=== PATIENT | female | born 1995 | race Two or more races ===

== ENCOUNTER 2017-05-05 12:57 | Outpatient (CLI) | payer BC ==
[2017-05-05 14:04] LABS: BASOPHILS % (AUTO) 0.5 % (0.0-2.0); EOSINOPHILS # (AUTO) 0.1 /CMM (0.0-0.7); EOSINOPHILS % (AUTO) 0.6 % (0.0-6.0); HEMATOCRIT 37 % (33-45); LYMPHOCYTES # (AUTO) 2.6 /CMM (0.8-4.8); LYMPHOCYTES % (AUTO) 30.4 % (20.0-44.0); MEAN CORPUSCULAR HEMOGLOBIN 26 PG (26.0-33.0); MEAN CORPUSCULAR HGB CONC 32 g/dl (31.0-36.0); MEAN CORPUSCULAR VOLUME 81 fL (82-100); MONOCYTES # (AUTO) 0.3 /CMM (0.1-1.30); MONOCYTES % (AUTO) 3.9 % (2.0-12.0); NEUTROPHILS # (AUTO) 5.5 /CMM (1.8-8.9); NEUTROPHILS % (AUTO) 64.6 % (43.0-81.0); PLATELET COUNT (AUTO) 272 /CMM (150-450); RDW COEFFICIENT OF VARIATION 15.9 (11.5-15.0); WHITE BLOOD COUNT (AUTO) 8.5 K/uL (4.3-11.0)
[2017-05-05 14:21] LABS: ALBUMIN 3.8 g/dL (3.4-5.0); BILIRUBIN,TOTAL 0.3 mg/dL (0.2-1.0); CALCIUM, SERUM 9.5 mg/dL (8.5-10.1); CREATININE 0.6 mg/dL (0.6-1.3); POTASSIUM 3.6 mmol/L (3.5-5.1); TOTAL PROTEIN, SERUM 7.8 g/dL (6.4-8.2)
[2017-05-05 14:54] LABS: FREE T4 (FREE THYROXINE) 1.03 ng/dL (0.76-1.46); THYROID STIMULATING HORMONE 1.209 uIU/mL (0.358-3.74)
== END 2017-05-05 23:59 | disposition home or self-care (01) ==
LOC: LAB 12:57
PROVIDERS: ATTEND Family Medicine
DX: R00.2 Palpitations (principal); R79.89 Other specified abnormal findings of blood chemistry
CPT/HCPCS: 36415; 80053-TC; 80061-TC; 84439-TC; 84443-TC; 85025-TC; 86900-TC

== ENCOUNTER 2017-08-10 11:23 | Outpatient (CLI) | payer BC | END 2017-08-10 23:59 | disposition home or self-care (01) | LOC: LAB 11:23 | PROVIDERS: ATTEND Family Medicine | DX: R89.1 Abnormal level of hormones in specimens from other organs, systems and tissues (principal) | CPT/HCPCS: 36415; 84146 ==

== ENCOUNTER 2017-09-07 11:55 | Outpatient (CLI) | payer BC ==
[2017-09-07] MEDS ORDERED: GADOVERSETAMIDE 5 MMOL/10 ML VIAL ONE (13:52)
[2017-09-07] MEDS ORDERED: GADOVERSETAMIDE 2.5 MMOL/5 ML VIAL ONE (13:52)
== END 2017-09-07 23:59 | disposition home or self-care (01) ==
LOC: MRI 11:55
PROVIDERS: ATTEND Family Medicine
DX: R89.1 Abnormal level of hormones in specimens from other organs, systems and tissues (principal)
CPT/HCPCS: 70542-TC; A9579

== ENCOUNTER 2018-03-24 11:44 | Outpatient (CLI) | payer BC ==
[2018-03-24 13:33] LABS: BASOPHILS % (AUTO) 0.7 % (0.0-2.0); EOSINOPHILS % (AUTO) 0.9 % (0.0-6.0); HEMATOCRIT 35 % (33-45); HEMOGLOBIN 10.9 g/dL (11.5-14.8); LYMPHOCYTES # (AUTO) 2.6 /CMM (0.8-4.8); LYMPHOCYTES % (AUTO) 42.1 % (20.0-44.0); MEAN CORPUSCULAR HEMOGLOBIN 25 PG (26.0-33.0); MEAN CORPUSCULAR HGB CONC 31 g/dl (31.0-36.0); MEAN CORPUSCULAR VOLUME 81 fL (82-100); MONOCYTES # (AUTO) 0.4 /CMM (0.1-1.30); MONOCYTES % (AUTO) 5.8 % (2.0-12.0); NEUTROPHILS # (AUTO) 3.1 /CMM (1.8-8.9); NEUTROPHILS % (AUTO) 50.5 % (43.0-81.0); PLATELET COUNT (AUTO) 289 /CMM (150-450); RDW COEFFICIENT OF VARIATION 16.9 (11.5-15.0); RED BLOOD CELL COUNT(AUTO) 4.27 MIL/uL (4.0-5.2); WHITE BLOOD COUNT (AUTO) 6.2 K/uL (4.3-11.0)
[2018-03-24 13:47] LABS: ALBUMIN 3.7 g/dL (3.4-5.0); BILIRUBIN,TOTAL 0.3 mg/dL (0.2-1.0); CALCIUM, SERUM 8.5 mg/dL (8.5-10.1); CREATININE 0.6 mg/dL (0.6-1.3); TOTAL PROTEIN, SERUM 7.4 g/dL (6.4-8.2)
[2018-03-24 13:55] LABS: FREE T4 (FREE THYROXINE) 1.08 ng/dL (0.76-1.46); THYROID STIMULATING HORMONE 0.779 uIU/mL (0.358-3.74)
[2018-03-25 08:08] LABS: FOLLICLE STIMULATION HORMONE 2.5 mIU/mL (.); PROLACTIN 39.3 ng/mL (4.8-23.3)
== END 2018-03-24 23:59 | disposition home or self-care (01) ==
LOC: LAB 11:44
PROVIDERS: ATTEND Family Medicine
DX: R89.1 Abnormal level of hormones in specimens from other organs, systems and tissues (principal); E55.9 Vitamin D deficiency, unspecified
CPT/HCPCS: 36415; 80053-TC; 82306; 83001; 83002; 84146; 84439-TC; 84443-TC; 85025-TC

== ENCOUNTER 2022-04-02 10:30 | Outpatient (CLI) | payer BC | END 2022-04-02 23:59 | disposition home or self-care (01) | LOC: RAD 10:30 | PROVIDERS: ATTEND Family Medicine | DX: M25.561 Pain in right knee (principal); R07.9 Chest pain, unspecified; Z00.01 Encounter for general adult medical examination with abnormal findings | CPT/HCPCS: 71046; 73562 ==

== ENCOUNTER 2022-05-06 08:08 | Outpatient (CLI) | payer BC | END 2022-05-06 23:59 | disposition home or self-care (01) | LOC: US 08:08 | PROVIDERS: ATTEND Family Medicine | DX: K59.00 Constipation, unspecified (principal); R07.9 Chest pain, unspecified | CPT/HCPCS: 76700-TC; 93307-TC ==

== ENCOUNTER → 2023-04-07 | Outpatient (CLI) | payer BC | END | disposition home or self-care (01) | LOC: RAD 13:06 | PROVIDERS: ATTEND Family Medicine | DX: Z01.818 Encounter for other preprocedural examination (principal) | CPT/HCPCS: 71046 ==

== ENCOUNTER 2023-04-21 06:03 | Inpatient (IN) | payer BC ==
[~2023-04-21] VITALS: Ht 157.5 cm; Wt 72.6 kg
[2023-04-21] MEDS ORDERED: FENTANYL PF 250MCG/5ML AMPUL ONE (06:50)
[2023-04-21] MEDS ORDERED: HYDROMORPHONE INJ 2 MG/ML DISP.SYRIN ONE (06:50)
[2023-04-21] MEDS ORDERED: FAMOTIDINE/PF INJ 20 MG/2 ML VIAL IV ONE (06:51)
[2023-04-21] MEDS ORDERED: ROCURONIUM BROMIDE 50 MG/5 ML ONE (06:51)
[2023-04-21] MEDS ORDERED: MIDAZOLAM HCL 2 MG/2ML VIAL ONE (06:51)
[2023-04-21 06:54] LABS: PREGNANCY TEST URINE QUAL NEGATIVE (NEGATIVE)
[2023-04-21] MEDS ORDERED: LIDOCAINE HCL/MPF 1% 30 ML VIAL IJ ONE (06:58)
[2023-04-21] MEDS ORDERED: BUPIVACAINE 0.5 % PF 150 MG/30 ML VIAL ONE (06:59)
[2023-04-21] MEDS ORDERED: LIDOCAINE 1%-EPI 1:100,000 20 ML VIAL ONE (07:35)
[2023-04-21] MEDS ORDERED: MORPHINE SULFATE INJ 4 MG/ML DISP.SYRIN ONE (12:09)
[2023-04-21 12:30] VITALS: BP 124/80; TEMP 98.8; O2SAT 100
[2023-04-21] MEDS ORDERED: PROP10TA10 PO (12:32)
[2023-04-21] MEDS ORDERED: IV D5/0.45 NACL 1,000 ML IV PRN (13:00)
[2023-04-21] MEDS ORDERED: MAGNESIUM HYDROXIDE 30 ML UDC PO PRN (13:30)
[2023-04-21] MEDS ORDERED: PROPRANOLOL HCL 10 MG TABLET PO PRN (13:30)
[2023-04-21] MEDS ORDERED: HYDROCODONE/APAP 10/325MG TABLET PO PRN (13:30)
[2023-04-21] MEDS ORDERED: ACETAMINOPHEN 325 MG TABLET PO PRN (13:30)
[2023-04-21] MEDS ORDERED: Z GUARD REMEDY 4 OZ OINT TP PRN (13:30)
[2023-04-21] MEDS ORDERED: ONDANSETRON HCL/PF 4 MG/2 ML VIAL IVP PRN (13:30)
[2023-04-21] MEDS ORDERED: MAG HYDROX/AL HYDROX/SIMETH 30 ML UDC PO PRN (13:30)
[2023-04-21] MEDS ORDERED: ZOLPIDEM TARTRATE 5 MG TABLET PO PRN (13:30)
[2023-04-21] MEDS: HYDROMORPHONE 1 MG/1 ML DISP.SYRIN IV PRN ×2 (14:22→21:33)
[2023-04-21 16:00] VITALS: BP 115/66; TEMP 99; O2SAT 98
[2023-04-21] MEDS: IV NS 0.9% 1,000 ML IV PRN (16:05)
[2023-04-21] MEDS: MORPHINE SULFATE INJ 2 MG/ML DISP.SYRIN IV PRN (17:33)
[2023-04-21] MEDS: oxyCODONE/APAP (5/325 MG) 1 UDTAB TABLET PO PRN (19:38)
[2023-04-21 20:00] VITALS: BP 112/57; TEMP 97.9; O2SAT 98
[2023-04-22] MEDS: MORPHINE SULFATE INJ 2 MG/ML DISP.SYRIN IV PRN ×2 (01:57→08:11)
[2023-04-22] MEDS: IV NS 0.9% 1,000 ML IV PRN (04:43)
[2023-04-22] MEDS: oxyCODONE/APAP (5/325 MG) 1 UDTAB TABLET PO PRN (05:09)
[2023-04-22 07:00] VITALS: BP 112/51; TEMP 97.9; O2SAT 100
[2023-04-22 08:17] LABS: BASOPHILS % (AUTO) 0.2 % (0.0-2.0); EOSINOPHILS % (AUTO) 0.2 % (0.0-6.0); HEMATOCRIT 31 % (33-45); HEMOGLOBIN 10.1 g/dL (11.5-14.8); LYMPHOCYTES % (AUTO) 32.2 % (20.0-44.0); MEAN CORPUSCULAR HEMOGLOBIN 28 PG (26.0-33.0); MEAN CORPUSCULAR HGB CONC 33 g/dl (31.0-36.0); MEAN CORPUSCULAR VOLUME 84 fL (82-100); MONOCYTES # (AUTO) 0.8 K/uL (0.1-1.30); MONOCYTES % (AUTO) 8.5 % (2.0-12.0); NEUTROPHILS # (AUTO) 5.5 K/uL (1.8-8.9); NEUTROPHILS % (AUTO) 58.9 % (43.0-81.0); PLATELET COUNT (AUTO) 220 K/uL (150-450); RED BLOOD CELL COUNT(AUTO) 3.67 MIL/uL (4.0-5.2); RED CELL DISTRIBUTION WIDTH 15.6 % (11.5-15.0); WHITE BLOOD COUNT (AUTO) 9.3 K/uL (4.3-11.0)
[2023-04-22 08:26] LABS: CALCIUM, SERUM 7.9 mg/dL (8.5-10.1); CREATININE 0.5 mg/dL (0.6-1.3); MAGNESIUM 2.1 mg/dL (1.8-2.4); PHOSPHORUS 3.2 mg/dL (2.5-4.9); POTASSIUM 3.5 mmol/L (3.5-5.1)
[2023-04-22] MEDS ORDERED: HYDR-3980 PO (09:46)
[2023-04-22] MEDS ORDERED: IBUP-1957 PO (09:46)
[2023-04-22] MEDS ORDERED: ACET325T53 PO (09:46)
[2023-04-22] MEDS ORDERED: DOCU-141 PO (09:46)
[2023-04-22] MEDS: HYDROMORPHONE 1 MG/1 ML DISP.SYRIN IV PRN (10:54)
[2023-04-22 12:00] VITALS: BP 115/61; TEMP 98.6; O2SAT 97
== END 2023-04-22 11:50 | disposition home or self-care (01) | DRG 585 ==
LOC: DS 06:03 → MED 12:14
PROVIDERS: ADMIT Nurse Practitioner Acute Care; ATTEND Nurse Practitioner Acute Care
PROC: 0H0V0ZZ Alteration of Bilateral Breast, Open Approach (ICD-10-PCS; principal; 2023-04-21)
DX: N62 Hypertrophy of breast (principal); Q83.8 Other congenital malformations of breast; L30.4 Erythema intertrigo; N64.4 Mastodynia
CPT/HCPCS: 36415; 80048-TC; 83735-TC; 84100-TC; 84703-TC; 85025-TC; A6253; G0378; J0690; J1100; J1170; J2250; J2270; J2405; J2704; J2765; J3010; J3490; J7030